=== PATIENT | female | born 1985 | race Caucasian/White ===

== ENCOUNTER 2023-02-21 14:34 | Outpatient (CLI) | payer OTHER, SELFPAY ==
--- NOTE | ~2023-02-21 | US_ITS ---
US thyroid INDICATION: Autoimmune thyroiditis TECHNIQUE: Real-time sonographic images of the thyroid gland were obtained. COMPARISON: No prior studies for comparison. FINDINGS: The right thyroid lobe measures 5.3 x 1.8 x 1.8 cm. The left thyroid lobe measures 5 x 1.6 x 2 cm. Thyroid gland is diffusely heterogeneous. No discrete nodules identified. Increased vascular flow is present. IMPRESSION: 1. Enlarged heterogeneous hypervascular thyroid, consistent with thyroiditis. Reviewed, dictated and finalized at location A. CONSULTING DIRECTOR
== END 2023-02-21 14:35 | disposition home or self-care (01) ==
LOC: ANHIMG 14:38
PROVIDERS: PCP Family Medicine; Visit Provider Internal Medicine Endocrinology, Diabetes & Metabolism
DX: E06.3 Autoimmune thyroiditis (principal); E03.8 Other specified hypothyroidism
CPT/HCPCS: 76536

== ENCOUNTER 2023-07-03 20:01 | Emergency (ER) | payer OTHER, SELFPAY ==
[2023-07-03 20:04] VITALS: BP 105/80; PULSE 97; RESP 18; TEMP 36.2; O2SAT 100
--- NOTE | 2023-07-03 20:41 | ED.LOWEXIN ---
HPI - Extremity Injury (Lower) General Chief Complaint: Extremity Injury, Lower Stated Complaint: right claf swelling bulging Time Seen by Provider: 07/03/23 20:14 Source: patient Mode of arrival: ambulatory Limitations: no limitations History of Present Illness HPI Narrative: This is a 37 year old female that presents to the ER for right calf injury. Reports she had just worked out and was jump roping. She felt sudden pain to the right calf with immediate swelling. Reports pain with weight bearing and palpation of the area. Denies decreased ROM or numbness. Related Data Home Medications Medication Instructions Recorded Confirmed ascorbate calcium (vitamin C) PO 02/07/23 05/17/23 cholecalciferol (vitamin D3) 25 75 mcg PO .COMPLEX 05/17/23 05/17/23 mcg (1,000 unit) capsule Allergies Allergy/AdvReac Type Severity Reaction Status Date / Time No Known Allergies Allergy Verified 07/03/23 20:07 Review of Systems Review of Systems: CONSTITUTIONAL: Denies fever MUSCULOSKELETAL: Reports myalgia. NEUROLOGIC: Denies numbness, or weakness. All systems reviewed & are unremarkable except as noted in HPI and below PMFSH Past Medical History Medical History Thyroid disorder Family History Family History Mother Alcoholism Hypertension Sibling Depression Anxiety Social History Social History Social History: Caffeine--Coffee 1 cup per day Smoking status: Never smoker Alcohol intake: current Alcohol use details: once a week if that --Liquor Substance use: never Exam Narrative: GENERAL: Well-appearing, well-nourished, and in no acute distress. HEAD: Normocephalic, atraumatic. EYES: EOMI. EXTREMITIES: Normal range of motion. Area of swelling to the right inner calf, tender to palpation. Compartments are soft. Normal DP pulse SKIN: Warm, dry, no rash. NEURO: No focal deficits. Alert and oriented x3. PSYCH: Normal mood and affect Course Course Emergency Course: Patient updated on workup and agrees with plan of care Vital Signs Vital signs: Vital Signs Temperature 97.1 F L 07/03/23 20:04 Pulse Rate 97 07/03/23 20:04 Respiratory Rate 18 07/03/23 20:04 Blood Pressure 105/80 07/03/23 20:04 Pulse Oximetry 100 07/03/23 20:04 Oxygen Delivery Room Air 07/03/23 20:04 Temperature 97.1 F L 07/03/23 20:04 Pulse Rate 97 07/03/23 20:04 Respiratory Rate 18 07/03/23 20:04 Blood Pressure 105/80 07/03/23 20:04 Pulse Oximetry 100 07/03/23 20:04 Oxygen Delivery Room Air 07/03/23 20:04 MDM - Extremity Injury (Lower) MDM Narrative Medical decision making narrative: Patient presents to the ER for right calf pain and swelling. Patient is neurovascularly intact. CBC and metabolic panel without concerning findings. D dimer is not elevated. Patient likely with calf muscle strain. She was instructed on further care. Wils be given follow up with orthopedics. She was given warnings to return to the ER Differential Diagnosis Differential diagnosis: Likely other (calf muscle strain, contusion, hematoma, DVT) Lab Data Attestation: I reviewed the patient's lab results. 07/03/23 20:48 07/03/23 20:48 Labs: Lab Results 07/03/23 Range/Units 20:48 WBC 8.0 (4.5-10.0) K/mm3 RBC 4.75 (4.2-5.4) M/mm3 Hgb 12.9 (12.0-15.0) g/dL Hct 39.8 (37.0-47.0) % MCV 83.8 (80-100) fl MCH 27.2 (26-34) pg MCHC 32.4 (32-36) g/dl RDW 12.8 (11.5-14.5) % Plt Count 318 (150-375) k/mm3 MPV 9.0 (7.4-10.4) fl Immature Gran % (Auto) 0.3 (0-0.5) % Neut % (Auto) 55.8 (45.5-73.1) % Lymph % (Auto) 31.9 (18.3-44.2) % [place] % (Auto) 9.3 H (2.6-8.5) % Eos % (Auto) 1.8 (0-4.4) % Baso % (Auto) 0.9 (0.2-1.2) % Lymph # (Auto) 2.55 (0.9-3.2) K/mm3
[2023-07-03 20:53] LABS: Basophils Absolute Auto 0.1 K/mm3 (0.0-0.1); Basophils Percent Auto 0.9 % (0.2-1.2); Eosinophils Absolute Auto 0.1 K/mm3 (0-0.3); Eosinophils Percent Auto 1.8 % (0-4.4); Hematocrit 39.8 % (37.0-47.0); Hemoglobin 12.9 g/dL (12.0-15.0); Immature Granulocyte Absolute 0.02 K/mm3 (0.00-0.031); Immature Granulocyte Percent A 0.3 % (0-0.5); Lymphocytes Absolute Auto 2.55 K/mm3 (0.9-3.2); Lymphocytes Percent Auto 31.9 % (18.3-44.2); Mean Corpuscular HGB Conc 32.4 g/dl (32-36); Mean Corpuscular Hemoglobin 27.2 pg (26-34); Mean Corpuscular Volume 83.8 fl (80-100); Monocytes Absolute Auto 0.7 K/mm3 (0.1-0.6); Monocytes Percent Auto 9.3 % (2.6-8.5); Neutrophils Absolute Auto 4.5 K/mm3 (1.3-6.7); Neutrophils Percent Auto 55.8 % (45.5-73.1); Platelet Count Result 318 k/mm3 (150-375); Red Blood Count 4.75 M/mm3 (4.2-5.4); Red Cell Distribution Width 12.8 % (11.5-14.5)
[2023-07-03 21:03] LABS: Anion Gap 7 mmol/L (4-12); Blood Urea Nitrogen 24 mg/dL (7-17); Calcium 9.8 mg/dL (8.4-10.2); Carbon Dioxide 26 mmol/L (22-30); Chloride 107 mmol/L (98-107); Estimated CRCL calculation 81 ml/min; Estimated Glomerular Filt Rate > 60; Glucose 74 mg/dL (65-110); Magnesium 1.9 mg/dL (1.6-2.3); Potassium 4.1 mmol/L (3.4-5.0); Sodium 140 mmol/L (137-145)
[2023-07-03 21:10] LABS: D Dimer < 0.27 ug/mL (<0.48)
== END 2023-07-03 21:42 | disposition home or self-care (01) ==
LOC: ANHED 21:36
PROVIDERS: Emergency Provider Physician Assistant; PCP Family Medicine
DX: S86.911A Strain of unspecified muscle(s) and tendon(s) at lower leg level, right leg, initial encounter (principal); E07.9 Disorder of thyroid, unspecified; X50.9XXA Other and unspecified overexertion or strenuous movements or postures, initial encounter; Y93.A2 Activity, calisthenics
CPT/HCPCS: 36415; 80048; 83735; 85025; 85380; 99283